=== PATIENT | female | born 1965 | race Two or more races ===

== ENCOUNTER 2017-11-18 12:18 | Outpatient (CLI) | payer OTHER ==
[~2017-11-18 12:18] MED LIST: IBUPROFEN800 MG PO; MORPHINE SULFAT15 MG PO; ORPH100T PO
== END 2017-11-18 12:26 | disposition home or self-care (01) ==
LOC: MAMO-SONO 12:18
DX: Z12.31 Encounter for screening mammogram for malignant neoplasm of breast (principal)

== ENCOUNTER 2018-04-19 11:10 | Outpatient (CLI) | payer OTHER | END 2018-04-19 11:21 | disposition home or self-care (01) | LOC: LAB 11:10 | DX: J11.1 Influenza due to unidentified influenza virus with other respiratory manifestations (principal); J20.0 Acute bronchitis due to Mycoplasma pneumoniae ==

== ENCOUNTER → 2018-08-11 12:01 | Outpatient (CLI) | payer OTHER | END | disposition home or self-care (01) | LOC: LAB 12:01 | DX: J11.1 Influenza due to unidentified influenza virus with other respiratory manifestations (principal); J11.81 Influenza due to unidentified influenza virus with encephalopathy ==

== ENCOUNTER 2018-12-25 12:27 | Outpatient (CLI) | payer OTHER | END 2018-12-25 12:31 | disposition home or self-care (01) | LOC: LAB 12:27 | DX: J11.1 Influenza due to unidentified influenza virus with other respiratory manifestations (principal); J20.8 Acute bronchitis due to other specified organisms ==

== ENCOUNTER 2019-04-11 10:03 | Outpatient (CLI) | payer OTHER | END 2019-04-11 10:07 | disposition home or self-care (01) | LOC: LAB 10:03 | DX: J11.1 Influenza due to unidentified influenza virus with other respiratory manifestations (principal) ==

== ENCOUNTER 2019-10-03 15:21 | Outpatient (CLI) | payer OTHER | END 2019-10-03 18:00 | disposition home or self-care (01) | LOC: CERTIFICAD 15:21 | PROVIDERS: ATTEND General Practice | DX: Z11.1 Encounter for screening for respiratory tuberculosis (principal) ==

== ENCOUNTER 2019-11-16 08:00 | Outpatient (CLI) | payer OTHER | END 2019-11-16 16:14 | disposition home or self-care (01) | LOC: PPH VACUNA 08:00 | DX: Z23 Encounter for immunization (principal) ==

== ENCOUNTER 2020-11-24 08:00 | Outpatient (CLI) | payer OTHER | END 2020-11-24 08:30 | disposition home or self-care (01) | LOC: PPH VACUNA 08:00 | PROVIDERS: ATTEND Emergency Medicine Pediatric Emergency Medicine | DX: Z23 Encounter for immunization (principal) ==

== ENCOUNTER 2020-12-08 09:01 | Emergency (ER) | payer OTHER ==
[~2020-12-08] VITALS: Ht 157.5 cm; Wt 99.8 kg
[2020-12-08] MEDS ORDERED: KETO10TA2 PO (11:04)
[2020-12-08] MEDS ORDERED: NORFLEX100MG PO (11:04)
== END 2020-12-08 11:08 | disposition home or self-care (01) ==
LOC: ER 09:01
DX: M54.59 Other low back pain (principal)

== ENCOUNTER 2021-03-10 08:32 | Outpatient (CLI) | payer OTHER ==
[~2021-03-10 08:32] MED LIST changes: +KETO10TA2 PO; +NORFLEX100MG PO
== END 2021-03-10 15:00 | disposition home or self-care (01) ==
LOC: LAB 08:32
PROVIDERS: ATTEND Emergency Medicine Pediatric Emergency Medicine
DX: Z03.818 Encounter for observation for suspected exposure to other biological agents ruled out (principal)

== ENCOUNTER 2021-09-07 08:52 | Outpatient (CLI) | payer OTHER | END 2021-09-07 08:53 | disposition home or self-care (01) | LOC: LAB 08:52 | PROVIDERS: ATTEND General Practice | DX: Z00.00 Encounter for general adult medical examination without abnormal findings (principal); E78.5 Hyperlipidemia, unspecified; E55.9 Vitamin D deficiency, unspecified; N39.0 Urinary tract infection, site not specified; R10.2 Pelvic and perineal pain; R10.9 Unspecified abdominal pain; R42 Dizziness and giddiness ==

== ENCOUNTER 2023-12-05 11:40 | Outpatient (CLI) | payer OTHER | END 2023-12-05 12:00 | disposition home or self-care (01) | LOC: PPH VACUNA 11:40 | PROVIDERS: ATTEND Emergency Medicine Pediatric Emergency Medicine | DX: Z23 Encounter for immunization (principal) ==

== ENCOUNTER 2023-12-20 12:48 | Outpatient (CLI) | payer OTHER | END 2023-12-20 12:57 | disposition home or self-care (01) | LOC: MAMO-SONO 12:48 | PROVIDERS: ATTEND Surgery | DX: N60.11 Diffuse cystic mastopathy of right breast (principal); N60.12 Diffuse cystic mastopathy of left breast ==

== ENCOUNTER → 2024-08-15 08:54 | Outpatient (CLI) | payer OTHER ==
[2024-08-15 09:35] LABS: URINE BACTERIA 1406.2 uL (0.0-1933); URINE EPITHELIAL CELLS 59.1 uL (0.0-38.8); URINE RBC 6.6 uL (0.0-20.8)
[2024-08-15 09:36] LABS: URINE CAST 0.14 uL (0.0-1.40)
[2024-08-15 09:39] LABS: URINE APPEARANCE CLEAR; URINE BILIRRUBIN SMALL (NEGATIVE); URINE BLOOD NEGATIVE; URINE COLOR YELLOW; URINE GLUCOSE NEGATIVE (NEGATIVE); URINE KETONE 15 (NEGATIVE); URINE LEUKOCYTE NEGATIVE; URINE NITRATE NEGATIVE; URINE PROTEIN NEGATIVE (NEGATIVE); URINE UROBILINOGEN 0.2 E.U./dl
[2024-08-15 09:49] LABS: BASO % 0.7 % (0.1-1.2); EOS # 0.05 (0.04-0.54); EOS % 0.9 % (0.7-7.0); HEMATOCRIT 43.7 % (34.1-44.9); HEMOGLOBIN 14.2 g/dL (11.2-15.7); LYMPH # 1.75 (1.18-3.74); LYMPH % 32.6 % (19.3-53.1); MEAN CORPUSCULAR HEMOGLOBIN 26.4 pg (25.6-32.2); MONO # 0.44 (0.24-0.82); MONO % 8.2 % (4.7-12.5); NEUT # 3.09 (1.56-6.13); NEUT % 57.6 % (34.0-71.1); PLATELET COUNT 263 K/uL (163-369); RED BLOOD COUNT 5.37 M/uL (3.93-5.22); RED CELL DISTRIBUTION WIDTH 13.5 % (11.6-14.4)
[2024-08-15 09:53] LABS: ERYTHROCYTE SEDIMENTATION RATE 44 mm/hr (0-30)
[2024-08-15 10:30] LABS: ALBUMIN 3.8 gm/dL (3.4-5.0); BILIRUBIN TOTAL 0.44 mg/dL (0.3-1.2); CALCIUM 9.3 mg/dL (8.5-10.1); CHOL HDL RATIO 5.1 (0-5.0); CREATININE SERUM 0.77 mg/dL (0.55-1.02); GFR 76.99; GLOBULINA 3.5 G/DL (2.4-3.5); POTASSIUM 4.19 mEq/L (3.5-5.1); T4 FREE 1.04 NG/ML (0.76-1.46); TOTAL PROTEIN 7.3 gm/dL (6.4-8.2); TSH 1.94 uIU/mL (0.358-3.74)
[2024-08-15 10:40] LABS: C-REACTIVE PROTEIN 0.74 MG/DL (0.00-0.29)
[2024-08-15 11:31] LABS: T3 TOTAL 1.58 ng/ml (0.846-2.02); VITAMIN D3 25 HYDROXY 28.07 ng/ml (30-120)
[2024-08-16 09:08] LABS: ESTRADIOL SERUM 27.9 pg/mL (.); FOLLICLE STIMULATING HORMONE 40.2 mIU/mL (.); INSULIN LEVELS 25.4 uIU/mL (2.6-24.9); LEUTEINIZING HORMONE 29.4 mIU/mL (.); PROGESTERONA 0.1 ng/mL (.)
[2024-08-17 15:08] LABS: test free 2.6 pg/mL (0.0-4.2)
== END | disposition home or self-care (01) ==
LOC: LAB 08:54
DX: E03.9 Hypothyroidism, unspecified (principal); E04.0 Nontoxic diffuse goiter; Z13.0 Encounter for screening for diseases of the blood and blood-forming organs and certain disorders involving the immune mechanism; E55.9 Vitamin D deficiency, unspecified; E66.9 Obesity, unspecified; R73.09 Other abnormal glucose; E78.00 Pure hypercholesterolemia, unspecified; F51.01 Primary insomnia; M19.90 Unspecified osteoarthritis, unspecified site; L68.0 Hirsutism; R89.1 Abnormal level of hormones in specimens from other organs, systems and tissues; N95.1 Menopausal and female climacteric states; R11.2 Nausea with vomiting, unspecified; R74.8 Abnormal levels of other serum enzymes; E27.0 Other adrenocortical overactivity; N41.0 Acute prostatitis; E88.819 Insulin resistance, unspecified

== ENCOUNTER 2024-12-25 11:07 | Outpatient (CLI) | payer OTHER | END 2024-12-25 11:10 | disposition home or self-care (01) | LOC: MAMO-SONO 11:07 | PROVIDERS: ATTEND Surgery | DX: N60.11 Diffuse cystic mastopathy of right breast (principal); N60.12 Diffuse cystic mastopathy of left breast ==

== ENCOUNTER 2024-12-28 14:45 | Outpatient (CLI) | payer OTHER | END 2024-12-28 14:55 | disposition home or self-care (01) | LOC: PPH VACUNA 14:45 | PROVIDERS: ATTEND Emergency Medicine Pediatric Emergency Medicine | DX: Z23 Encounter for immunization (principal) ==